=== PATIENT | male | born 1995 | race Caucasian/White ===

== ENCOUNTER 2017-01-09 19:12 | Emergency (ER) | payer OTHER ==
[~2017-01-09] VITALS: Ht 180.3 cm; Wt 59.0 kg
[~2017-01-09 19:12] MED LIST: ALBU0.0939 IH
[2017-01-09 19:25] VITALS: BP 131/84
[2017-01-09] MEDS ORDERED: ARIP10TA28 PO (19:49)
[2017-01-09] MEDS ORDERED: DIVA500E1 PO (19:49)
[2017-01-09] MEDS ORDERED: CITA20TA15 PO (19:49)
[2017-01-09] MEDS ORDERED: DIPH50CA69 PO (19:49)
[2017-01-09] MEDS ORDERED: BUS5 PO (19:49)
--- NOTE | 2017-01-09 19:49 | NUR ---
PT TAKEN TO [facility]
--- NOTE | 2017-01-09 20:02 | NUR ---
DARLENE SORTO EVALUATING PATIENT
[2017-01-09] MEDS ORDERED: IBUPROFEN 600 MG TAB PO ONE (20:20)
[2017-01-09] MEDS ORDERED: CYCLOBENZAPRINE 10 MG TAB PO ONE (20:20)
--- NOTE | 2017-01-09 20:26 | NUR ---
Dr. Morrow evaluating patient
[2017-01-09] MEDS ORDERED: LIDOCAINE 1% 500 MG/50 ML VIAL INJ ONE (20:30)
[2017-01-09] MEDS ORDERED: LIDOCAINE 1% 500 MG/50 ML VIAL INJ SCH (20:30)
[2017-01-09] MEDS ORDERED: LIDOCAINE 1% ED 50 ML ONE (20:37)
[2017-01-09] MEDS ORDERED: diphenhydrAMINE 50 MG/ML VIAL IM ONE (20:40)
--- NOTE | 2017-01-09 21:00 | NUR ---
21Y/M PT. PRESENTS TO ER WITH C/O STIFFED NECK X 1 DAY. PT. STATES , WAS DIAGNOSED HYDRONEPHROSIS, TAKE NEW MEDICATIONS, THEN STIFFED NECK AFTER. TAKING BUSPIRONE, BENAPHEN,ABIFY, DIVALPROEX, CITALOPRAM. AAO X4, AMBULATORY WITH STEADY GAIT, STIFFED NECK. RESPIRATIONS ROOM AIR, EVEN AND UNLABORED. NO S/SX OF DISTRESS AT THIS TIME. ER MD MADE AWARE OF PT. STATUS.
--- NOTE | 2017-01-09 21:25 | NUR ---
Patient discharged with v/s stable. Written and verbal after care instructions given and explained. Patient verbalized understanding. Ambulatory with steady gait. All questions addressed prior to discharge. Advised to follow up with PMD.
[2017-01-09 22:14] VITALS: BP 122/83
== END 2017-01-09 21:25 | disposition home or self-care (01) ==
LOC: MED 19:12
DX: R25.8 Other abnormal involuntary movements (principal); F10.99 Alcohol use, unspecified with unspecified alcohol-induced disorder; F14.90 Cocaine use, unspecified, uncomplicated; Z88.1 Allergy status to other antibiotic agents
CPT/HCPCS: 96372; 99283; J1200; J2001

== ENCOUNTER 2023-03-23 20:34 | Emergency (ER) | payer OTHER ==
[~2023-03-23] VITALS: Ht 177.8 cm; Wt 63.5 kg
[~2023-03-23 20:34] MED LIST changes: +ABI10 PO; +BUS5 PO; +CITA20TA15 PO; +DIPH50CA69 PO; +DIVA500E1 PO; +MIRT-120 PO
[2023-03-23 20:50] VITALS: BP 114/74; PULSE 110; RESP 16; TEMP 95; O2SAT 98
[2023-03-23] MEDS ORDERED: LIDOCAINE 1% 500 MG/ 50 ML VIAL INJ ONE (21:15)
[2023-03-23] MEDS ORDERED: BACI-418 TP (21:35)
[2023-03-23] MEDS ORDERED: BACITRACIN OINT 500 UNITS/GM PKT TP ONE (21:35)
[2023-03-23 22:10] VITALS: BP 114/74; PULSE 85; RESP 16; TEMP 95; O2SAT 98
== END 2023-03-23 22:10 | disposition home or self-care (01) ==
LOC: MED 20:34
DX: S02.2XXA Fracture of nasal bones, initial encounter for closed fracture (principal); S01.81XA Laceration without foreign body of other part of head, initial encounter; J45.909 Unspecified asthma, uncomplicated; Z79.899 Other long term (current) drug therapy; Z88.1 Allergy status to other antibiotic agents; V00.131A Fall from skateboard, initial encounter; Y93.89 Activity, other specified; Y92.89 Other specified places as the place of occurrence of the external cause; Y99.8 Other external cause status
CPT/HCPCS: 12013; 99282; J2001

== ENCOUNTER 2023-03-31 12:34 | Emergency (ER) | payer OTHER ==
[~2023-03-31] VITALS: Ht 180.3 cm; Wt 63.5 kg
[~2023-03-31 12:34] MED LIST changes: +BACI-418 TP
[2023-03-31 12:41] VITALS: BP 131/92; PULSE 82; RESP 18; TEMP 98.1; O2SAT 99
[2023-03-31] MEDS ORDERED: BACITRACIN OINT 500 UNITS/GM PKT TP ONE (13:11)
== END 2023-03-31 13:23 | disposition home or self-care (01) ==
LOC: MED 12:34
DX: S01.112D Laceration without foreign body of left eyelid and periocular area, subsequent encounter (principal); J45.909 Unspecified asthma, uncomplicated; N18.9 Chronic kidney disease, unspecified; Z48.02 Encounter for removal of sutures; W18.30XD Fall on same level, unspecified, subsequent encounter
CPT/HCPCS: 99281